=== PATIENT | female | born 1980 | race Caucasian/White ===

== ENCOUNTER 2024-05-03 17:43 | Emergency (ER) | payer SELFPAY | END 2024-05-03 19:53 | disposition home or self-care (01) | LOC: CSHERS 17:43 | DX: F11.20 Opioid dependence, uncomplicated (principal); I10 Essential (primary) hypertension | CPT/HCPCS: 99284 ==

== ENCOUNTER 2024-06-13 17:23 | Emergency (ER) | payer MEDICAID ==
[2024-06-13] MEDS ORDERED: Benzonatate 100 MG CAP ONE (18:31)
== END 2024-06-13 19:20 | disposition home or self-care (01) ==
LOC: CSHERS 17:23
DX: J06.9 Acute upper respiratory infection, unspecified (principal); I10 Essential (primary) hypertension; F17.290 Nicotine dependence, other tobacco product, uncomplicated
CPT/HCPCS: 71046; 87428